=== PATIENT | female | born 1980 | race Caucasian/White ===

== ENCOUNTER 2018-05-11 12:43 | Emergency (ER) | payer BC, MEDICAID ==
[2018-05-11 12:46] VITALS: BP 136/85
--- NOTE | 2018-05-11 13:08 | EDM.PDOC ---
ED HPI GENERAL MEDICAL PROBLEM - General Chief Complaint: Abdominal Pain Stated Complaint: gallbladder pain, abd pain Time Seen by Provider: 05/11/18 13:00 Source of Information: Reports: Patient History Limitations: Reports: No Limitations - History of Present Illness INITIAL COMMENTS - FREE TEXT/NARRATIVE: Patient is a 37-year-old female who comes in with chief complaint of generalized abdominal pain localized in the right upper quadrant patient states that she had a ultrasound and was diagnosed with cholelithiasis this was confirmed with [facility] at this time patient scheduled for surgery on but the pain has become unbearable so she came in for evaluation. 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: Acetaminophen, NSAIDS, Other Medication(s) Middle Abdomen Pain Score (Numeric/FACES): 9 - Related Data Allergies Allergy/AdvReac Type Severity Reaction Status Date / Time ketorolac tromethamine Allergy Rash Verified 05/11/18 12:49 [From Toradol] venom-wasp [wasp venom] Allergy Difficulty Verified 05/11/18 12:49 Breathing Home Meds: Home Meds Ibuprofen 800 mg PO Q6H PRN 10/15/14 [History] Acetaminophen [Tylenol Extra Strength] 1,000 mg PO ASDIRECTED PRN 05/11/18 [ History] Calcium Carbonate [Tums] 4 tab PO ASDIRECTED PRN 05/11/18 [History] diphenhydrAMINE [Benadryl] 50 mg PO Q6H PRN 05/11/18 [History] Past Medical History - Past Health History Medical/Surgical History: Denies Medical/Surgical History Other Gastrointestinal History: abd pain Other Genitourinary History: 11/08/14 Left kidney surgery to remove 5 stones. Stent placed Other Neuro History: impingement C2-C7 - Past Surgical History Other Female Surgeries/Procedures: CYSTOSCOPY WITH STENT PLACEMENT LEFT KIDENY on 11/08 in [facility] REMOVED 11/12/14 Social & Family History - Living Situation & Occupation Living situation: Reports: Single, with Family Occupation: Employed ED ROS GENERAL - Review of Systems Review Of Systems: See Below Constitutional: Reports: Diaphoresis, Weight Loss. Denies: Fever, Chills HEENT: Reports: No Symptoms Respiratory: Reports: No Symptoms Cardiovascular: Reports: Other (History of heart murmur) Endocrine: Reports: No Symptoms GI/Abdominal: Reports: Abdominal Pain, Diarrhea (Secondary to medicine now normal) : Reports: No Symptoms Musculoskeletal: Reports: No Symptoms Skin: Reports: Diaphoresis Neurological: Reports: No Symptoms Psychiatric: Reports: Agitation (Secondary to pain), Anxiety Hematologic/Lymphatic: Reports: No Symptoms Immunologic: Reports: No Symptoms ED EXAM, GI/ABD - Physical Exam Exam: See Below Exam Limited By: No Limitations General Appearance: Moderate Distress, Severe Distress Ears: Normal External Exam, Normal Canal, Hearing Grossly Normal, Normal TMs Nose: Normal Inspection, Normal Mucosa, No Blood Throat/Mouth: Normal Inspection, Normal Lips, Normal Teeth, Normal Gums, Normal Oropharynx, Normal Voice, No Airway Compromise Head: Atraumatic, Normocephalic Neck: Normal Inspection, Supple, Non-Tender, Full Range of Motion Respiratory/Chest: No Respiratory Distress, Lungs Clear, Other (Patient is a smoker) Cardiovascular: Normal Peripheral Pulses, Regular Rate, Rhythm, No Edema, No Gallop, No JVD, No Murmur, No Rub GI/Abdominal Exam: Normal Bowel Sounds, Soft, Non-Tender, No Organomegaly, No Distention, No Abnormal Bruit, No Mass, Pelvis Stable (Female) Exam: Deferred Rectal (Female) Exam: Deferred Back Exam: Normal Inspection, Full Range of Motion, NT Extremities: Normal Inspection, Normal Range of Motion, Non-Tender, Normal Capillary Refill, No Pedal Edema Neurological: Alert, Oriented, CN II-XII Intact, Normal Cognition, Normal Gait, Normal Reflexes, No Motor/Sensory Deficits Psychiatric: Anxious Skin Exam: Diaphoretic Lymphatic: No Adenopathy Course - Vital Signs Last Recorded V/S: Last Vital Signs Temp 98.5 F 05/11/18 12:45 Pulse 93 05/11/18 12:45 Resp 20 05/11/18 12:45 BP 136/85 05/11/18 12:45 Pulse Ox 100 05/11/18 12:45 - Orders/Labs/Meds Orders: Active Orders 24 hr Category Date Time Status CMP [COMPREHENSIVE METABOLIC PN,CMP] [CHEM] Stat Lab 05/11/18 12:53 Ordered Labs: Laboratory Tests 05/11/18 Range/Units 12:57 WBC 7.8 (4.0-10.2) K/uL RBC 4.73 (3.77-5.09) M/uL Hgb 13.7 (11.7-15.5) g/dL Hct 40.7 (34.0-46.0) % MCV 86.0 (84.0-98.0) fL MCH 29.0 (28.2-33.3) pg MCHC 33.7 (31.7-36.0) g/dL RDW 14.7 H (11.2-14.1) % Plt Count 294 (150-350) K/uL Neut % (Auto) 64.7 (45.0-80.0) % Lymph % (Auto) 26.4 (10.0-50.0) % Wood % (Auto) 6.8 (2.0-14.0) % Eos % (Auto) 1.3 (0.0-5.0) % Baso % (Auto) 0.8 (0.0-2.0) % Neut # (Auto) 5.08 (1.40-7.00) K/uL Lymph # (Auto) 2.07 (0.50-3.50) K/uL Wood # (Auto) 0.53 (0.00-1.00) K/uL Eos # (Auto) 0.10 (0.00-0.50) K/uL Baso # (Auto) 0.06 (0.00-0.20) K/uL Departure - Departure Time of Disposition: 13:46 Disposition: Home, Self-Care 01 Clinical Impression: Cholelithiasis and acute cholecystitis without obstruction - Discharge Information *PRESCRIPTION DRUG MONITORING PROGRAM REVIEWED*: No *COPY OF PRESCRIPTION DRUG MONITORING REPORT IN PATIENT ISABEL: No Instructions: Cholelithiasis Referrals: PCP,None [Primary Care Provider] - Care Plan Goals: Patient was given Dilaudid IM for pain control at this time we'll send her home she is to continue taking Motrin for acute pain 4 tablets every 6 hours as needed she will undergo cholecystectomy on of the coming week May 14, 2018 at [facility]. Follow-up with surgeon as needed - My Orders Last 24 Hours: My Active Orders 05/11/18 12:53 CMP [COMPREHENSIVE METABOLIC PN,CMP] [CHEM] Stat - Assessment/Plan Last 24 Hours: My Active Orders 05/11/18 12:53 CMP [COMPREHENSIVE METABOLIC PN,CMP] [CHEM] Stat
[2018-05-11] MEDS ORDERED: HYDROmorphone 0.5 MG/0.5 ML Syringe IM ONE (13:13)
[2018-05-11] MEDS ORDERED: Ondansetron 4 MG Tab.DIS PO ONE (13:20)
[2018-05-11 13:24] LABS: CHLORIDE,CL 104 mmol/L (98-107); SODIUM,NA 140 mmol/L (136-145)
== END 2018-05-11 14:00 | disposition home or self-care (01) ==
LOC: LL.ED 12:43
DX: K80.00 Calculus of gallbladder with acute cholecystitis without obstruction (principal); Z88.8 Allergy status to other drugs, medicaments and biological substances; Z91.030 Bee allergy status; Z79.899 Other long term (current) drug therapy
CPT/HCPCS: 36415; 80053; 80305-QW; 85025; 96372; 99284; A9270-GY; J1170